=== PATIENT | male | born 2000 | race Caucasian/White ===

== ENCOUNTER 2024-06-07 08:00 | Outpatient (RCR) | payer OTHER, SELFPAY ==
--- NOTE | 2024-06-07 09:05 | BH.SGPN.GN ---
Behaviors/Verbalizations/Mental Status: [] Eye contact is good. Motor activity is appropriate. Appearance is casual. Speech is Appropriate. Mood is anxious/irritable. Affect is congruent. Thoughts are linear and logical. No evidence of psychosis. Reviewed daily check in sheet and pt reports 1/5 for suicidal thoughts and 0/5 for intent. Completed risk assessment prior to group. Client Response/Progress/Benefit: [] Pt declined to participate during check-in. Daily symptom tracker notes 4/5 for irritability and 3/5 for depression.Today was his first day in IOP level of care. Peers introduced themselves and shared feedback and advice for his first day/week which was beneficial. Limited progress noted. Limited benefit from group and pt presents as distracted and anxious. Will continue in IOP to prevent decompensation, stabilize mood, and increase healthy coping skills.? Narrative Note: []
--- NOTE | 2024-06-07 09:59 | BH.COMM ---
Communication Note Communication with Client Communication Note: Met with pt to complete initial paperwork and administer the CSSR-S screening and risk assessment. Pt is a mild risk as pt has thoughts of , but pt has no thoughts of actually killing himself. Pt reports he has googled if oxygen can be a method for suicide, but he shared ?googling was as far as it went.? Pt has no history of suicide attempts and he denies ever having any plans or intent to kill himself. Pt has history of self-harm by burning once 3-4 years ago. No access to weapons. Pt is future oriented. Pt reports ability to maintain safety today. Discussed case with Dr. Sharp and pt will be admitted to [facility] tx with a diagnosis of MDD, recurrent severe without psychosis F 33.2
--- NOTE | 2024-06-07 10:15 | BH.SGPN.GN ---
Behaviors/Verbalizations/Mental Status: []Client alert and oriented, casually dressed and groomed. Eye contact good. Motor activity appropriate. Speech within normal limits. Affect flat, mood depressed and anxious. Thoughts linear, logical, no signs of hallucinations or delusions. Client Response/Progress/Benefit: [] Pt was an active participant AEB contributing to discussion, taking notes, and engaging in group activity. Pt?s first day of IOP tx and he was somewhat withdrawn which is not uncommon. Connected with the topic of pitfalls and listened to group discussion on barriers that prevent from choosing a healthier path to mental wellness. Group worked together to identify examples of personal pitfalls. These examples included; shutting down, not asking for help, negative thinking patterns, and using substances. Pt benefited from group as Pt learned to better identify potential barriers to improving mental health symptoms. Pt will continue IOP tx to improve mood stability, promote use of healthy coping skills, and prevent decompensation. Narrative Note: []
--- NOTE | 2024-06-07 11:15 | BH.SGPN.GN ---
Behaviors/Verbalizations/Mental Status: []Client alert and oriented, casually dressed and groomed. Eye contact good. Motor activity appropriate. Speech within normal limits. Affect congruent, mood anxious and depressed. Thoughts linear, logical, no signs of hallucinations or delusions. Client Response/Progress/Benefit: [] Pt receptive of session, engaged throughout AEB Pt actively listening and contributing to discussion as well as taking notes.? Pt participated in the experiential activity and did well to communicate ideas with peers and manage emotions. Pt attentive as group processed how the emotions and perspective of the group impacted the activity. Group worked together to identify different coping skills to help manage pitfalls. Pt identified a pitfall they struggle with as no routine. Pt plans to work on their pitfall by taking small steps to begin establishing routine. Benefited from identifying personal pitfalls and strategies to overcome these pitfalls. Pt will continue IOP tx to prevent decompensation, improve daily functioning, and gain skills to manage depressive sx. Narrative Note: []
--- NOTE | 2024-06-07 11:53 | BH.PSA ---
Source of Information Presenting Problems/Circumstances Problems, Referral Source, Mental Status, Client: The patient is a 23-year-old single male with a history of depression, anxiety and probable autism spectrum disorder who was referred to the [facility] behavioral health IOP by his mother for worsening symptoms of depression and anxiety over the past year since moving back home from [place] where he had been living and working independently. Psychiatric Presentation Psych Issues & Need for Admission Psychiatric Issues:: Anxiety, Depression, Autism Spectrum Disorder Development & Family of Origin Childhood Significant Childhood Events: Pt reports his childhood was normal he did indicate has been estranged from his father since age 13 and it is unclear why this has occurred. Pt additionally reports he did well in school academically but states that he never did well socially. He states I do not get along with people. Pt has struggled with socialization since. Family Who currently lives in your home?: Pt is living with his mother and step-father. Describe family composition:: Pt has been estranged from his biological father since age 13. He is currently living with his mother and step-father and reports this is a good relationship. Pt has a half-brother 15 months older than he and reports they are close. Family History Family Hx of Psychiatric or AOD Problems: Mother is 48 and biological father he has been estranged from since age 13 and is not sure how old he is now. His biological father was bipolar and history of alcohol use disorder. No completed suicides in the family and no other substance issues. Ethnicity Culture Do you identify yourself with any particular cultural, ethnic background, or community?: No Sexuality Sexual Orientation: Heterosexual Spirituality Restoration Do you currently identify with any organized confucianist?: None Beliefs Is there a particular form of support from this community you can use for your recovery?: No Mental Status Memory Recent Memory: Fair Remote Memory: Fair Concentration Concentration: Fair Eye Contact Eye Contact: Good Speech Speech: Congruent Thought Process Thought Process: Logical and [place] Insight: Fair Judgment: Fair Behavior: Agitated Orientation Orientation: Time, Person, Place and Situation Appearance Appearance: Disheveled Mood Mood: Anxious, Depressed and Irritable Suicide Assessment Suicidal Ideation Have you ever felt like hurting yourself?: Yes Please explain:: hx of passive SI, denies plan or intent. Denies self-harm hx Were you using ETOH/drugs at the time?: Yes (pt vapes TCH throughout the day) Physician Notification Violent Behavior/Abuse History Homicidal Ideation Do you have any homicidal thoughts? If so, explain:: No Is there a known potential victim? If yes, who:: No Abuse Have you ever been abused?: No Life Events Are there any other significant life events?: Financial loss (Pt quit his job in February 2023 and has been struggling to find employment since) Safety Do you ever feel threatened in your home? If yes, describe:: No Adult Social History Age 17 to Present Describe your current support system:: Pt reports his parents, brother, and some online friends are primary supports. Reports difficulties connecting with others. Substance Use Substance Substance Use Type: Alcohol (1-2x per month), Marijuana (age 16 and he smokes and vapes once or twice daily a bowl or few vape pen hits), Tobacco (ages [age] off and on, none in a few months) and Caffeine Leisure/Social Activities Interests What do you enjoy or might be interested in learning about?: Online video games, [employer] card games, [employer], [employer] Education & Occupational Histo Education What is your level of education?: Some College Occupation List any current or past employment:: Previously worked in [employer] and [employer] Have you ever been in the ?: No Legal History Records Have you had any past legal charges?: No Do you have any current legal charges?: No Have you ever been incarcerated? If yes, describe:: No Court Orders Have you had any past court orders for psychiatric treatment?: No Do you have a present court order for psychiatric treatment?: No Problem Checklist Current Problem Areas Problem List: Depressed mood/sad, Anxiety, Anger/aggression and Substance use Discharge Planning Needs Anticipated Follow-Up Mental Health Center (Name/Phone Number):: None at present, will be connected prior to d/c Private Therapist/Psychiatrist:: None at present, will be connected prior to d/c Family and Caregiver Contacts:: Mom Release of Information Signed:: Yes Scarf Gluer's Assessment Client's Needs What are the client's feelings about the program?: Client is uncertain about the IOP program but is willing to give it a try as he does not want to continue to feel the way he does and does not want to disappoint his mother as she referred him to the program. What are the client's goals?: Improve motivation and follow-through with daily goals/responsibilities. Reduce depressive sx, and improve mood stability What are the client's strengths?: Intelligent, willing to to take feedback Diagnoses Diagnoses Diagnosis #1:: Major depressive disorder, recurrent, severe without psychosis Diagnosis #2:: Autism spectrum disorder Diagnosis #3:: Primary support and work issues Interpretive Summary Interpretive Summary Interpretive Summary: The patient is a 23-year-old single male with a history of depression, anxiety and probable autism spectrum disorder who was referred to the [facility] behavioral health IOP by his mother for worsening symptoms of depression and anxiety over the past few months. Symptoms have worsened in the past year since moving back in with his mother and step-father after living and working in [place] for 1 year. Patient moved back home due to worsening mental health symptoms. Due to current mental health symptoms he has not been able to work and has limited social support. He has some sadness and crying at times and also has anger daily which has been consistent for many years and some irritability with lashing out at others less than once a week. This is only verbal and he denies any violence. He endorses hopelessness, worthlessness, isolation, lack of motivation, anhedonia, naps during the day and then has a hard time sleeping at night, low energy, guilt, passive thoughts of . He denies plan for suicide, suicidal ideation, homicidal ideation, hallucinations, delusions or symptoms of yonas or hypomania ever. Repports using marijuana daily to cope with his sx. He says he is not a worrier by nature and denies panic attacks, OCD, eating disorder, trauma and PTSD. He denies any verbal, physical or sexual abuse ever and denies seizure or head trauma. He uses rare caffeine only and no energy drinks. He has a history of self-harm by burning himself but it was only 1 time at age 18 and never before or after. Treatment Plan Recommendations Recommendations Guidelines Recommendations:: The patient will start the IOP and behavioral health at [facility] as the structure, support, education and group therapy will hopefully prevent worsening of the patient's symptoms which could require hospitalization.
--- NOTE | 2024-06-09 10:25 | BH.MDN_ITS ---
Multi-Disciplinary Note Note 45-min Individual: Time Started:: 11:34 Date: 06/09/24 Purpose of session/treatment goals addressed:: Purpose of session was to address tx plan goal #1 obj #1 & 2 Eye Contact:: Good Motor Activity:: Appropriate Appearance:: Casual Speech:: Appropriate Mood:: Irritable Affect:: Congruent Thoughts:: Linear, Logical and No evidence of hallucinations/delusions noted Staff Interventions:: thought challenging, motivational interviewing and CBT techniques Client Response:: Pt receptive of session, willing to engage throughout though appearing resistant. Pt noted that he is feeling a little more irritable today and the past few days than usual. Pt noted that he has reduced naps however noted that he has not seen a change in mood yet as a result. Pt noted that he knows the skills, however, actively doesn?t utilize them. Stated that it?s not that he doesn?t want to make progress and use the skills, but he lacks the motivation and willingness to put in the effort. Notes that he will attempt to start working on a skill or goal and become easily distracted and ?give into the urge to give up?. Shared that in the past he has had ?a 6th month stretch of using skills? but is struggling with thoughts of ?what?s the point? given his return to depression following the period of skill application. Shared thoughts of ?this is pointless? and ?good things don?t last? which has deterred him from consistently applying opposite action or implementing positive self-talk or gratitude statements. Shared that he struggles to identify small positive moments throughout the day. Expressed reluctance but willingness to try starting to log small positive experiences or observations throughout the day to increase ability to reduce negative thinking. Risks/Concerns:: None noted. Pt denies SI, plan, or intent as of this date, 06/14/24 Progress Toward Goals/Plan:: Progress limited. Pt continues to report negative thoughts, lack of skill application follow-through, and low motivation. Pt reports difficulties with managing irritability and depression and often struggles with negative thoughts, hopelessness, and agitation. Pt reports dif ficulties in reducing isolation and believing that things can improve. Pt stated that he has however reduced daytime napping and is wanting to continue to work on self-care and increasing exercise. Pt recommended continued IOP tx to improve mood stability, reduce negative thinking, and prevent decompensation. Time Stopped:: 12:10
--- NOTE | 2024-06-09 10:45 | BH.NA_ITS ---
Physical Data Vital Signs Pulse Rate: 77 Blood Pressure: 143/73 Height/Weight Height: 1.77 m Weight:: 99.79 kg Weight in Pounds: 220.0 lbs Nutritional History Appetite Nutritional Instructions: Describe your appetite:: Good Additional nutritional information:: Client denies recent change in appetite or weight. Functional Assessment Sleep Pattern Describe any problems with sleeping: Client states he sleeps 6-8 hours per day. Sensory/Communication Assess Communication Problems Do you have difficulty understanding what people are saying?: No Medical Problems/History Pain Assessment Do you have acute or chronic pain?: No Surgical History Surgical History Have you had any surgeries? If so, list type and date:: No Substance Abuse Substance Abuse Please describe substance abuse in the last 30 days:: Client reports rarely drinking alcohol. Client states he used to vape nicotine but does not now. Clien t reports daily marijuana use. Client denies daily caffeine use. Mental Status Summary Mental Status Significant Findings/Observations on Appearance and Mood:: Client is alert and oriented x 4. Client is cooperative with assessment. Client makes good eye contact. Client's voice has normal rate and volume. Client has appropriate affect. Client makes logical associations and has normal processing. Client denies delusions/hallucinations. Client reports passive SI 1-2 times per week, but denies thinking of plan/methods and denies intent. Client denies SI today. Suicide Assessment Suicidal Ideation Are you currently or have you been suicidal in the past?: Yes Suicidal Intentional Rating Scale (SIRS): Suicidal thoughts (past) (states he has passive SI 1-2 times per week (wish I would ) but denies any plan/intent) Physician Notification Past Psychiatric History MH Treatment Hx Past Psychiatric Medications:: Prozac, Wellbutrin Age of first mental health symptoms: Client states he first took Prozac for some time around age 20-20, but does state he had depression symptoms before that. Describe (age, circumstance, etc) any past hospitalizations: None. Current providers for mental health treatment (counselor, psychiatrist, senior case manager, etc.): None currently. Fall Risk Assessment Age Age: Less than 60 Mental Status Mental Status: Willing & able to ask for assistance when needed Physical Status Physical Status: No problems Impairments Impairments: None Elimination Elimination: Continent AND independent Gait or Balance Gait or Balance: Walks independently Hx of Falls History of falls in the past 6 months: No known history Medications/Substances Medications/substances used within the past 24 hours or ordered to administer: None of the medications/substances list above Total Score Total Points:: 0 RN Summary of Impressions Impressions Recommendations Impressions: Psychiatric Issues: 1. Major depressive disorder, recurrent, severe without psychosis 2. Autism spectrum disorder 3. Primary support and work issues Level of Care How do the client's current symptoms and functional deficits support need for this level of care?: Client was referred to IOP by his mother for decompensation of mental health. Client states his biggest stressor is having a lack of a goal in life. Client states he does not have motivation in life and has no direction. Client states it's always kind of been that way with me but states struggling with his lack of motivation and direction more in the last 6 months. Client reports anger at times. Client does report to passive thoughts of 1-2 times per week but denies any plan or intent. IOP will promote gains and prevent further decompensation while providing social support and skills training.
[2024-06-09 11:05] VITALS: BP 143/73; PULSE 77
--- NOTE | 2024-06-09 11:15 | BH.SGPN.GN ---
Behaviors/Verbalizations/Mental Status: []Client alert and oriented, casually dressed and groomed. Eye contact fair. Motor activity appropriate. Speech within normal limits. Affect constricted, mood dysthymic. Thoughts linear, logical, no signs of hallucinations or delusions. Client Response/Progress/Benefit: []Pt was engaged throughout AEB contributing to group discussion and activity. Group processed how they each responded to the intentionally difficult task they were asked to completed and described the physical and emotional anger cues experienced throughout, as well as strategies used for managing these frustrations. Pt contributed as group brainstormed healthy coping skills for better managing anger which included: music, walking/exercise, taking a break, healthy venting, avoiding unnecessary stressors, reflection, and journaling. Pt cooperative with working in small groups to identify what strategy wants to work on to help interrupt personal anger cycle. Pt to continue IOP to improve daily functioning, increase use of healthy coping skills, and prevent decompensation.
--- NOTE | 2024-06-09 11:58 | BH.PSY.EVA_ITS ---
Psychiatric Evaluation Initial Evaluation Initial Evaluation: History of Present Illness: [] The patient is a 23-year-old single male with a history of depression, anxiety and probable autism spectrum disorder who was referred to the [facility] behavioral health IOP by his mother for worsening symptoms of depression and anxiety over the past few months. The patient has struggled with his mental health on and off all my life. His symptoms have worsened in the past year and he thinks possibly they started after he switched jobs. 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 Patient was living alone but last year he moved back in with his mother and stepdad due to worsening mental health symptoms. He gets along well with both of them. Due to symptoms he has not been able to work and has limited social support. He has some sadness and crying at times and also has anger daily which has been consistent for many years and some irritability with lashing out at others less than once a week. This is only verbal and he denies any violence. For primary support he has his mother. He uses marijuana daily. He endorses hopelessness, worthl essness, isolation, lack of motivation, anhedonia. Appetite and weight are stable. He naps during the day and then has a hard time sleeping at night but he is getting over 8 hours of sleep a day total. Low energy but concentration is okay. He endorses guilt, passive thoughts of . He denies plan for suicide, suicidal ideation, homicidal ideation, hallucinations, delusions or symptoms of yonas or hypomania ever. He says he is not a worrier by nature and denies panic attacks, OCD, eating disorder, trauma and PTSD. He denies any verbal, physical or sexual abuse ever and denies seizure or head trauma. He uses rare caffeine only and no energy drinks. He has a history of self-harm by burning himself but it was only 1 time at age 18 and never before or after. Current Psychiatric Medications: [] No psych meds. Past Psychiatric History: [] No psych admits ever. No suicide attempts ever. He does not have an outpatient psych provider. He was first depressed in high school and took his first medications at age 18 or 19 along with his first counseling. He last took any psych meds 18 months ago. Past medications include Prozac which worked for a long time and Wellbutrin which she felt did not help him and he did not like it. Substance Use History: [] He has smoked marijuana since age 16 and he smokes and vapes once or twice daily a bowl or few vape pen hits. He uses alcohol occasionally like less than 1 or 2 times in the past month or 2. No other drug use. He used to use nicotine from age [age] he vapes nicotine on and off but he quit nicotine use a few months ago. Allergies: [] No known allergies. Medications: [] No medications or supplements. Past Medical History: [] No medical illnesses and no surgeries ever. Normal sexual function and identifies as heterosexual. Family Psychiatric History: [] Mother is 48 and biological father he has been estranged from since age 13 and is not sure how old he is now. His biological father was bipolar and history of alcohol use disorder. No completed suicides in the family and no other substance issues. Personal/Social History: [] Patient was born and raised in [place] and describes his childhood as normal. His parents were loving and he has one half brother [id number] who is fairly close to his they were mostly raised together. He denies any verbal, physical or sexual abuse. He did well in school academically but states that he never did well socially. He states I do not get along with people. He graduated high school and has some college but quit because he was not motivated. He has been estranged from his father since age 13 and it is unclear why this has occurred. 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 No serious girlfriends lately but he had 1 serious girlfriend from age [age] for a little less than a year. Legal History: [] No arrests. No DUIs. Has tow car driver's license. Review of Systems: [] Review of systems is negative except as noted in the present illness. Vital Signs: [] Vital signs are reviewed in the nurses notes and updated and the patient is deemed medically able to participate in the IOP. Mental Status Examination: [] The patient is a 23-year-old male who appears normal for stated age and has a carlson. He is ambulatory with a normal gait and is casually dressed and groomed with good hygiene. He has no psychomotor agitation or retardation. He is cooperative during the interview. Eye contact is good and speech is normal rate and rhythm and fluent with no pres sure. Mood is depressed. Affect is mildly constricted. Thought process is goal-directed and organized. Thought content: There is evidence of passive thoughts of but there is no evidence of plan for suicide, suicidal ideation, homicidal ideation, hallucinations, delusions or symptoms of yonas ever. Reality testing is intact. Intelligence is average. Judgment is intact. Insight Limited. Laboratory: He has never had any blood work that he recalls. Diagnoses: [] 1. Major depressive disorder, recurrent, severe without psychosis 2. Autism spectrum disorder 3. Primary support and work issues Plan: [] The patient will start the [facility] and behavioral health at [facility] as the structure, support, education and group therapy will hopefully prevent worsening of the patient's symptoms which could require hospitalization. He felt safe during the interview and if it anytime he does not feel safe he agrees to let us know or go to the emergency room. The risk, options, possible complications and side effects of the medications options were discussed with the patient and he understands accepts these. The patient agrees to go back on Prozac since he did well on it for many years and he does not take any other medication. Prescription is sent in for Prozac 10 mg p.o. daily. He agrees to get a TSH and vitamin D laboratory done. He agrees to keep regular sleep-wake hours and to stop napping so he sleeps better at night. He will follow-up with with his outpatient providers and I will see the patient in follow-up in 2 weeks. He will try to decrease his marijuana use.
--- NOTE | 2024-06-09 12:08 | BH.DR.ITP ---
Initial Treatment Plan Patient Information Visit Information: ADMISSION DATE: EXPECTED LOS: 4-6 weeks Problems/Symptoms Problem #1:: Depression Symptom:: Sadness, hopelessness, worthlessness, anhedonia, lack of motivation, low energy, guilt, passive thoughts of
--- NOTE | 2024-06-09 15:34 | BH.MDN_ITS ---
Multi-Disciplinary Note Note 45-min Individual: Time Started:: 09:20 Date: 06/09/24 Purpose of session/treatment goals addressed:: To gather information on pt's treatment goals, presenting problems, history, and past treatment. Another goal was to build rapport. Eye Contact:: Good Motor Activity:: Appropriate Appearance:: Casual Speech:: Pressured Mood:: Anxious and Depressed Affect:: Congruent Thoughts:: Linear, Logical and No evidence of hallucinations/delusions noted Staff Interventions:: motivational interviewing, rapport building, strengths perspective, treatment planning and other (emotion validation) Client Response:: Pt responded well to session, open to meeting with therapist. Pt reports he has been struggling with mental health for many years as pt recalls depressive sx since early high school. Pt shared he has always felt ?different? from other people and has struggled to connect with others. Reports limited supports and no friendships as a result. Shared that he has been living with his mother and step-father since February 2023 when he moved back home after living in [place] for a while. Reports that he had been doing financially well in [place] but was lonely and began struggling with increased depression and social anxiety, resulting in returning home. Pt has had difficulties maintaining a job since moving back home and feels this is contributing significantly to his mental health decline. Described sx of feeling like a burden, guilt, hopelessness, worthlessness, purposelessness, low motivation, loss of enjoyment, and apathy. Noted that he does not know what to do with himself during the day and ends up playing video games, napping, or watching t.v. which leads to feelings of guilt and negative self-talk of ?I should be doing something. What?s the point?. Receptive of psychoeducation on depressive maintenance cycles. Wants to work on finding ?direction in life?, feeling more connected, and improving his sense of motivation. Receptive of working on reducing napping and connected to concept of behavioral activation in breaking depressive maintenance cycle. Shared he would like to work on being more active and finding enjoyment in hobbies as well. Insight that daily marijuana use may be impacting mood and motivation levels but feels he does not know how else to manage mental health sx. Denies other substance use. Pt receptive to emotional support and psychoeducation provided by therapist throughout session. Risks/Concerns:: Pt denies have any SI, plan or intent as of this date, 06/09/24 Progress Toward Goals/Plan:: Pt's second day of IOP tx. Pt shared he has never done group therapy in the past, but he is keeping an open mind. Pt has had counseling in the past but is not currently connected with providers. Pt wants to focus on reducing depression and finding a ?sense of direction?. Pt wants to isolate less, find purpose in daily activities, and be able to regulate his emotions more effectively. Pt will continue IOP tx to prevent decompensation, improve daily functioning, and gain healthy coping skills. Time Stopped:: 10:00
--- NOTE | 2024-06-11 09:05 | BH.SGPN.GN ---
Behaviors/Verbalizations/Mental Status: [] Eye contact is good. Motor activity is appropriate. Appearance is casual. Speech is Appropriate. Mood is euthymic. Affect is full. Thoughts are linear and logical. No evidence of psychosis. Reviewed daily check in sheet and pt reports 1/5 for self-harm urges and suicidal thoughts however 0/5 for intent. Client Response/Progress/Benefit: [] Pt participated at times during the group discussions. Attentive. Daily symptom tracker notes 3/5 for agitation and 2/5 for depression. Pt states that a significant mental health win is that he made it to IOP 3 days this week. Also shared that he followed through with an stressful and anxiety-producing event this week rather than avoid it. Emotion for today is neutral. Reports decrease sleep recently which impacts his mental health and overall functioning. Benefited from group support, encouragement, and feedback. Will continue in IOP to prevent decompensation, stabilize mood, increase healthy coping, and improve functioning. Narrative Note: []
--- NOTE | 2024-06-11 10:10 | BH.SGPN.GN ---
Behaviors/Verbalizations/Mental Status: [] Eye contact is fair. Motor activity is appropriate. Appearance is casual. Speech is Appropriate. Mood is dysthymic. Affect is constricted. Thoughts are linear and logical. No evidence of psychosis. Client Response/Progress/Benefit: [] Pt receptive of session, actively engaged throughout AEB taking notes, providing input, and contributing in small group discussion. Appeared to connect with group topic of automatic thoughts and cognitive distortions, as well as the impact of thought patterns on mental health, coping behaviors, and relationships. This particular group is very heavy on psychoeducation and pt appeared to connect with distortions and how they can impact functioning. Identified most common distortions he uses are all or nothing thinking and disqualifying the positives. Pt appeared to benefit from gaining insight on distorted thinking patterns and how this impacts overall mental health. Will continue IOP to improve daily functioning, increase consistent use of healthy coping skills, and prevent decompensation.
--- NOTE | 2024-06-11 11:15 | BH.SGPN.GN ---
Behaviors/Verbalizations/Mental Status: []Pt alert and oriented, casually dressed and groomed. Eye contact fair. Motor activity appropriate. Speech within normal limits. Affect constricted, mood depressed and agitated. Thoughts linear, logical, no signs of hallucinations or delusions Client Response/Progress/Benefit: [] Pt was an active participant during group discussion. Pt was placed in a smaller group and participated in combatting example distortions with peers. Pt was engaged in the smaller group, participated in group interactions to brainstorm answers, and appeared to be comprehending cognitive distortions. Attentive and appeared to connect with psychoeducation about different strategies to reframe/challenge distortions. Identified wanting to use looking at the evidence to better challenge personal distorted thoughts. Benefited from gaining further insight and awareness of cognitive distortions as well as practicing ways to reframe and challenge thoughts. Will continue in IOP to improve daily functioning, increase healthy coping, and prevent decompensation. Narrative Note: []
--- NOTE | 2024-06-11 11:52 | BH.MTP ---
Master Treatment Plan Patient Information Program Physician:: Dr. Malaika Berrios Primary Therapist:: HAILEE Sparks Psychiatric Diagnoses Psychiatric Diagnoses:: 1. Major depressive disorder, recurrent, severe without psychosis 2. Autism spectrum disorder 3. Primary support and work issues Diagnosis Code(s):: F33.2 Estimated LOS Estimated LOS (in weeks):: 6 Problem/Goal #1 Problem/Goal #1 Stated Goal:: Client will decrease depressive symptoms, low motivation, and hopelessness due to Major Depressive Disorder through Intensive Outpatient Program. Description of Barriers: Self-reports low motivation, treatment resistance, and mainly attending IOP treatment because his mother is encouraging him to do so. Given pt self-reports of difficulties in following-through with things this may be a barrier to tx progress. Functional Impact: The patient is a 23-year-old single male with a history of depression, anxiety and probable autism spectrum disorder who was referred to the [facility] behavioral health IOP by his mother for worsening symptoms of depression and anxiety over the past few months. Symptoms have worsened in the past year since moving back in with his mother and step-father after living and working in [place] for 1 year. Patient moved back home due to worsening mental health symptoms. Due to current mental health symptoms he has not been able to work and has limited social support. He has some sadness and crying at times and also has anger daily which has been consistent for many years and some irritability with lashing out at others less than once a week. This is only verbal and he denies any violence. He endorses hopelessness, worthlessness, isolation, lack of motivation, anhedonia, naps during the day and then has a hard time sleeping at night, low energy, guilt, passive thoughts of . He denies plan for suicide, suicidal ideation, homicidal ideation, hallucinations, delusions or symptoms of yonas or hypomania ever. Repports using marijuana daily to cope with his sx. He says he is not a worrier by nature and denies panic attacks, OCD, eating disorder, trauma and PTSD. He denies any verbal, physical or sexual abuse ever and denies seizure or head trauma. He uses rare caffeine only and no energy drinks. He has a history of self-harm by burning himself but it was only 1 time at age 18 and never before or after. Goal Relevant Strengths/Supports: Intelligent, willing to receive feedback Objectives Objective #1: Stated Objective: Client will learn and utilize 2-3 healthy coping strategies to manage depressive symptoms and see a reduction in DSM-5 sx for depression. Interventions: Therapist will utilize CBT techniques to assist client with understanding the connection between thoughts, feelings and behaviors. Education will be provided on behavioral activation. Therapist will assist client in learning internal coping strategies to manage depressive symptoms, along with helping client identify triggers. Discharge Criteria: Client will have achieved this goal when can verbalize and has practiced at least 2 healthy coping strategies that successfully manage depressive symptoms and DSM-5 scores for depression indicate a reduction in sx as well. Target Date: 07/23/24 Review Date: 06/30/24 Objective #2: Stated Objective: Client will identify and replace 2-3 negative thinking patterns that reinforce depressive symptoms. Interventions: Therapist will assist client in developing an awareness of the cognitive messages that reinforce depressive thinking. Therapist will also assist client in challenging negative thinking patterns. Discharge Criteria: Client will have achieved this goal when can identify at least 2 negative thinking patterns, replace negative thinking with more positive, affirmative messages and state no longer having thoughts of . Target Date: 07/23/24 Review Date: 06/30/24
--- NOTE | 2024-06-14 09:05 | BH.SGPN.GN ---
Behaviors/Verbalizations/Mental Status: [] Eye contact is good. Motor activity is appropriate. Appearance is casual. Speech is Appropriate. Mood is depressed. Affect is congruent. Thoughts are linear and logical. No evidence of psychosis. Reviewed daily check in sheet and pt reports 1/5 for SI and 0/5 for intent. Baseline. Client Response/Progress/Benefit: [] Pt participated at times during the group discussions. Attentive. Daily symptom tracker notes 3/5 for depression, anxiety, and irritability. Also reports 1/5 for self-harm urges. Very brief and superficial check-in. Reports lifestyle changes in the past week which include eating healthier which he believes will benefit his mental health. He also reports that maintaining the routine on attending IOP has been beneficial. Primary stressor is related to sleep which he notes has been impacting mental health and overall functioning. Limited progress noted. Benefited from group support,encouragement,and feedback. Will continue in IOP to prevent decompensation, increase healthy coping, and improve functioning. Narrative Note: []
--- NOTE | 2024-06-14 10:10 | BH.SGPN.GN ---
Behaviors/Verbalizations/Mental Status: []Client alert and oriented, casually dressed and groomed. Eye contact good. Motor activity appropriate. Speech within normal limits. Affect congruent, mood agitated and depressed. Thoughts linear, logical, no signs of hallucinations or delusions. Client Response/Progress/Benefit: [] Pt was an attentive and active participant, AEB taking notes and providing input in group discussion. Attentive during psychoeducation. Pt engaged during interactive discussion in which the group defined self-care and discussed its benefits. Group discussed barriers to engaging in self-care. Group members together came up with guilt, time, ?people pleasing?, not knowing what to do, and perception that its unproductive as barriers to engage in self-care. Pt identified personal barrier as ?it takes effort and energy? and ?not wanting to?. Pt participated in small groups where they worked to identify and challenged common self-care ?myths?. Benefited from increased awareness of self-care, its benefits, and the consequences of not utilizing self-care strategies. Will continue IOP tx to improve mood stability, promote use of healthy coping skills, and prevent decompensation. Narrative Note: []
--- NOTE | 2024-06-16 09:00 | BH.SGPN.GN ---
Behaviors/Verbalizations/Mental Status: [] Client alert and oriented, casual appearance. Eye contact fair. Motor activity appropriate. Speech within normal limits. Affect constricted, mood depressed. Thoughts linear, logical, no signs of hallucinations or delusions. Reviewed client's symptom tracker, no risk for suicidal ideation, plan, or intent. Client Response/Progress/Benefit: []Client appeared to attentive AEB listening attentively to others. Client chose to not check-in this morning how wins, stressors, or emotion. Appeared to benefit from getting out of the house and being around peers. Will continue IOP tx to increase consistent use of healthy coping skills, challenge distortions, and prevent decompensation.
--- NOTE | 2024-06-16 10:15 | BH.SGPN.GN ---
Behaviors/Verbalizations/Mental Status: []Pt alert and oriented, casually dressed and groomed. Eye contact good. Motor activity appropriate. Speech within normal limits. Affect flat, mood depressed. Thoughts linear, logical, no signs of hallucinations or delusions. Client Response/Progress/Benefit: [] Pt was attentive during psychoeducation and participated in group activity. Group discussed what contributes to a person?s perspective and how perspective can positively or negatively impact mental health treatment. Pt reflected on their perspective today and how it is impacting them. Pt shared their perspective is ?somewhere in the middle? but pt noted he tends to default to more negative and this reduces his productivity. Pt appeared to benefit from increasing awareness of different perspectives and how they can affect mental health. Pt will continue IOP tx to prevent decompensation, improve daily functioning, and reduce negative thinking patterns. Narrative Note: []
--- NOTE | 2024-06-16 11:15 | BH.SGPN.GN ---
Behaviors/Verbalizations/Mental Status: []Pt alert and oriented, casually dressed and groomed. Eye contact good. Motor activity appropriate. Speech within normal limits. Affect congruent, mood depressed. Thoughts linear, logical, no signs of hallucinations or delusions. Client Response/Progress/Benefit: []Pt was attentive and contributed to group discussion. Pt worked with group to identify strategies that can help with challenging negative perspective. Pt stated he can remind self of the evidence against his current perspective as a way to challenge negative perspective. Pt completed strengths exploration worksheet, identifying personal strengths. Pt able to acknowledge how these strengths are helping pt and can continue to help pt in mental health journey. Pt identified wanting to work on leaning on strength of humor. Benefited from identifying personal strengths and strategies for enhancing use of identified strengths. Pt will continue IOP tx to continue improve functioning and mood stability, challenge perspective, and prevent decompensation. Narrative Note: []
== END 2024-06-18 23:59 ==
LOC: BHIOP 08:00
PROVIDERS: Referring Provider Psychiatry & Neurology Psychiatry; Visit Provider Psychiatry & Neurology Psychiatry
DX: F33.2 Major depressive disorder, recurrent severe without psychotic features (principal); F84.0 Autistic disorder
CPT/HCPCS: S9480; 90834; 90853

== ENCOUNTER → 2024-06-09 | Outpatient (CLI) | payer OTHER, SELFPAY ==
[2024-06-09 13:18] LABS: Vitamin D,25 Hydroxy 9.2 ng/mL
== END | disposition home or self-care (01) ==
LOC: LAB 12:18
PROVIDERS: Referring Provider Psychiatry & Neurology Psychiatry; Visit Provider Psychiatry & Neurology Psychiatry
DX: E55.9 Vitamin D deficiency, unspecified (principal)
CPT/HCPCS: 36415; 82306; 84443

== ENCOUNTER 2024-06-21 07:17 | Outpatient (RCR) | payer OTHER, SELFPAY ==
[2024-06-19 02:41] VITALS: BP 143/73; PULSE 77
--- NOTE | 2024-06-21 09:00 | BH.SGPN.GN ---
Behaviors/Verbalizations/Mental Status: [] Client alert and oriented, casual appearance. Eye contact good. Motor activity appropriate. Speech within normal limits. Affect congruent, mood irritable. Thoughts linear, logical, no signs of hallucinations or delusions. Reviewed client's symptom tracker, client indicated a 1/5, with 5 being severe, for suicidal thoughts and a 1/5 for suicidal intent. Client's IOP therapist checked in with him and he stated this is his baseline scores and does not feel imminent risk to himself or others. Reported able to maintain safety. Client Response/Progress/Benefit: [] Client responded well to session AEB listening to others and sharing thoughts/feelings. Per daily symptom tracker client reported a 3/5, with 5 being severe, for depressed mood, 2/5 for anxiety, and 3/5 for agitation. Client reported mental positive as making it to IOP today despite not getting very good sleep last night. Client reported mental health positive as meeting up with some friends over the weekend to play cards which is something he enjoys doing. Client stated current stressor is sleep. Client recognizes he needs to break the cycle of taking naps because he is tired which then resulted in him not being able to go to bed at night. Client stated he knows he needs to stop the cycle but it is easier said than done. Client shared feeling indifferent. Client stated he knows there is things he can do to help himself but does not really do those things. Client appeared to benefit from support from peers. Will continue IOP tx to improve daily functioning, increase consistent use of healthy coping skills, and prevent decompensation. Narrative Note: []
--- NOTE | 2024-06-21 10:10 | BH.SGPN.GN ---
Behaviors/Verbalizations/Mental Status: [] Eye contact is good. Motor activity is appropriate. Appearance is casual. Speech is Appropriate. Mood is depressed/irritable. Affect is congruent. Thoughts are linear and logical. No evidence of psychosis. Client Response/Progress/Benefit: [] Pt participated when prompted. Attentive during psychoeducation. Along with peers, pt was able to identify barriers to taking action in their life. Identified several symptoms and stressors that pt feels are holding them back from progress such as procrastination and forgetting the benefits. Stated these things have kept pt from accepting or changing patterns. Benefited from increased self-awareness of obstacles. Will continue IOP tx to prevent decompensation, increase healthy coping, and improve functioning. Narrative Note: []
--- NOTE | 2024-06-21 11:15 | BH.SGPN.GN ---
Behaviors/Verbalizations/Mental Status: []Pt alert and oriented, casually dressed and groomed. Eye contact good. Motor activity appropriate. Speech within normal limits. Affect congruent, mood anxious and dysthymic. Thoughts linear, logical, no signs of hallucinations or delusions. Client Response/Progress/Benefit: [] Pt responded well to session, taking notes and participating in worksheet discussion. Pt connected with the discussion on motion vs action steps, and this helped pt learn how to set goals differently. Pt set a goal to work on going for regular walks. Pt identified motion steps including identifying what would incentivize him, starting with a small goal of 5 minutes. Pt stated what will help take action is communicate with support his intention and habit stacking with a shower. Appeared to benefit from identifying a small goal to benefit mental health. Pt is to continue IOP tx to promote use of healthy coping skills, challenge distortions, and prevent decompensation. Narrative Note: []
--- NOTE | 2024-06-22 10:10 | BH.SGPN.GN ---
Behaviors/Verbalizations/Mental Status: []Eye contact is good. Motor activity is appropriate. Appearance is casual. Speech is Appropriate. Mood is dysthymic. Affect is congruent. Thoughts are linear and logical. No evidence of psychosis. Client Response/Progress/Benefit: [] Pt was engaged and participating throughout, providing input and taking notes. Participated in an interactive discussion on defining anxiety and identifying cognitive and physiological symptoms of anxiety. The group discussed the role of anxiety on isolation, avoidance, and how this emotion impacts their ability to start and complete activities/goals. Pt identified their physical/physiological signs of anxiety which includes: butterflies in stomach, heart racing, and frog in throat. Benefited from increased awareness and insight on anxiety and its impact. Will continue in IOP to decrease isolation, increase healthy coping skills, and prevent decompensation. Narrative Note: []
--- NOTE | 2024-06-22 11:08 | BH.SGPN.GN ---
Behaviors/Verbalizations/Mental Status: []Pt alert and oriented, disheveled appearance. Eye contact good. Motor activity appropriate. Speech within normal limits. Affect congruent, mood depressed. Thoughts linear, logical, no signs of hallucinations or delusions. Client Response/Progress/Benefit: []Pt was an active participant AEB pt providing input and listening attentively to peers. Attentive during psychoeducation on mindfulness coping skills and their impact on reducing anxiety and improving overall mental health wellness. Group was able to identify self-soothing and mind-based coping skills which included: 5-senses, meditation, deep breathing, categories, thought challenging, categories, and progressive muscle relaxation. Pt also participated with peers in practicing mindfulness skills in session including deep breathing and PMR. Pt would like to work on 5-senses to manage anxiety. Appeared to benefit from increasing repertoire of anxiety reduction skills. Pt will continue in IOP tx to reduce isolation, improve daily functioning, and increase internal motivation. Narrative Note: []
--- NOTE | 2024-06-22 11:20 | BH.MDN ---
Multi-Disciplinary Note Note 30-min Individual: Time Started:: 09:40 Date: 06/22/24 Purpose of session/treatment goals addressed:: Purpose of session was to review homework form last session, as well as identify barriers maintaining depression and strategies for reducing those behaviors. Eye Contact:: Good Motor Activity:: Appropriate Appearance:: Casual Speech:: Appropriate Mood:: Depressed Affect:: Congruent Thoughts:: Linear, Logical and No evidence of hallucinations/delusions noted Staff Interventions:: thought challenging, psychoeducation on: (habit development and breaking unhealthy habits), CBT techniques, strengths perspective and goal setting Client Response:: Pt responded well to session, open to meeting with therapist and receptive of discussion throughout. Pt reports overall his mood and energy levels remain the same; however, he does indicate increased effort in application of skills learned. Discussed being more intentional about his personal hygiene routine and is doing better to consistently brush his teeth and eat breakfast in the mornings. Described trying to reduce daily naps but continues to struggle in this area. Insight that an inconsistent sleep/wake schedule and daily marijuana use may be contributing to daytime fatigue, reinforcing low motivation and depressive sx. Pt stated that he had intended to go for a walk following IOP tx yesterday but found himself napping and then feeling guilty for doing so instead. Shared that he would like to reduce the overall frequency of daily marijuana use; however, has struggled with doing so in the past due to the habitual nature of his use. Able to identify visual, time, and behavioral cues to use. Reports often vaping prior to meals and was able to connect with discussion on changing the time, location, and behaviors surrounding meal times to eliminate current cues to use. Pt identified the benefit of habit staking walking with one of his daily meals to provide healthy distraction and replace previous mealtime habits. Identified goal to begin drinking a meal replacement shake while walking at lunchtime to reduce likelihood of smoking. Plans to leave vape pen at home during this time as well to reduce likelihood of use. Went on to discuss trying to implement goal of identifying small daily positive experiences' however does find that he almost immediately disqualifies these. Reviewed strategies for continued thought challenging and mindfulness gratitude approaches to challenging this distortion. Risks/Concerns:: None noted. Pt denies SI, plan, or intent as of this date 06/22/24 Progress Toward Goals/Plan:: Progress noted. Pt reports improved ability and willingness to begin trying to challenge his perspective and identify more daily positive, practice additional mindfulness, as well as increase self-care routine implementation. Pt does continue to indicate difficulties with active skill application and follow-through, specifically with goals to get back into walking/exercising regularly. Pt reports his mood continues to be depressed and motivation low, but is finding his ability to connect with topics discussed in group to be improving. This is further evidenced by improved engagement in group sessions over the last week. Pt recommended continued IOP tx to improve mood stability, promote application of behavior activation skills, and prevent decompensation. Time Stopped:: 10:05
--- NOTE | 2024-06-25 09:00 | BH.SGPN.GN ---
Behaviors/Verbalizations/Mental Status: [] Eye contact is good. Motor activity is appropriate. Appearance is disheveled. Speech is Appropriate. Mood is dysthymic. Affect is congruent. Thoughts are linear and logical. No evidence of psychosis. Reviewed daily check in sheet and pt reports 1/5 for suicidal ideations and 0/5 for intent. This is baseline. Client Response/Progress/Benefit: [] Pt participated when prompted. Attentive. Daily symptom tracker notes 3/5 for anxiety and 2/5 for depression/agitation. Also reports 1/5 for self-harm urges. Despite these scores pt report overall mood and functioning are better. My sleep is a rollercoaster. Pt shared recent strategies to help improve sleep with some progress noted however this continues to be a struggle. Pt has difficulty not napping throughout the day which impacts his sleep schedule as well as his mental health and productivity during the day. He woke up late this AM however I didn't skip IOP. Utilizes opposite actions and distress tolerance skills to follow through with getting here this AM. He is working to change unhealthy habits and incorporating healthier habits to beneficial his overall functioning. Some progress noted. Benefited from group support, encouragement, and feedback. Will continue in IOP to prevent decompensation, increase healthy coping,and improve functioning. Narrative Note: []
--- NOTE | 2024-06-25 10:15 | BH.SGPN.GN ---
Behaviors/Verbalizations/Mental Status: [] Eye contact is good. Motor activity is appropriate. Appearance is casual. Speech is Appropriate. Mood is anxious. Affect is congruent. Thoughts are linear and logical. No evidence of psychosis Client Response/Progress/Benefit: [] Pt receptive to session AEB listening attentively to others and taking notes. Pt attentive throughout psychoeducation on the cognitive triangle and maintenance cycles. Pt attentive and engaged during small group discussion reviewing the impact of daily activities and behaviors in either reinforcing unhealthy maintenance cycles and depression or assisting in reducing symptoms (?down? vs ?up? activities). Pt identified common up activities (exercise, going outside, and eating healthy) and down activities (napping, binge watching, doom scrolling). Appeared to benefit from increased awareness of current behaviors and impact these have on mental health. Will continue IOP to prevent decompensation, increase healthy coping, and improve functioning. Narrative Note: []
--- NOTE | 2024-06-25 11:10 | BH.SGPN.GN ---
Behaviors/Verbalizations/Mental Status: []Pt alert and oriented, disheveled appearance. Eye contact good. Motor activity appropriate. Speech within normal limits. Affect congruent, mood depressed. Thoughts linear, logical, no signs of hallucinations or delusions. Client Response/Progress/Benefit: [] Pt responded well to session, attentive and engaged in group discussions and activity. Actively engaged in continued discussion about up activities and down activities. Active participant as group discussed values and the benefits that knowing one's values can have on one's mental health. Pt completed worksheet on values and set a goal to be more physically active again by walking on the treadmill or outside once a week. Benefited from increased awareness of their personal values and how incorporating their values into behavioral activation goals can positively impact mental health. Will continue in IOP to reduce negative thinking patterns, improve daily functioning, and increase internal motivation. Narrative Note: []
--- NOTE | 2024-06-28 09:00 | BH.SGPN.GN ---
Behaviors/Verbalizations/Mental Status: [] Eye contact is good. Motor activity is appropriate. Appearance is casual. Speech is Appropriate. Mood is dysthymic. Affect is congruent. Thoughts are linear and logical. No evidence of psychosis. Reviewed daily check in sheet and pt reports 1/5 for suicidal thoughts and 0/5 for intent. This is baseline. Client Response/Progress/Benefit: [] Pt was an active participant in group discussion. Attentive. Daily symptom tracker notes 2.5 for anxiety, depression, and irritability. Also reports 1/5 for self-harm urges. Very brief and superficial check-in which is baseline for pt. Reports utilizing opposite-action and behavioral activation on consistent basis to improve his functioning. Seeing benefits to his mental health as well, however continues to report low motivation. He has begun job searching which is a significant step for patient. Progress noted, however mental health continues to impact daily functioning. Benefited from group support, encouragement, and feedback. Will continue in IOP to prevent decompensation, increase healthy coping,and improve functioning. Narrative Note: []
--- NOTE | 2024-06-28 10:10 | BH.SGPN.GN ---
Behaviors/Verbalizations/Mental Status: []Eye contact is good. Alert and oriented. Motor activity is appropriate. Appearance is casual. grooming is appropriate. Speech is Appropriate. Mood is dysthymic. Affect is congruent. Thoughts are linear and logical. No evidence of psychosis or hallucinations. Client Response/Progress/Benefit: [] Pt was an active participate AEB listening attentively to others and contributing during group discussions, participating in activity, and taking notes throughout. Attentive and provided input as the group identified ways we can hurt others or sabotage self by not regulating our emotions. Participated with peers to identify ways emotions impact communication. Provided an example of lashing out verbally or stonewalling when anger is unmanaged. Participated during group activity. Pt benefited from session by gaining an increased understanding on the importance of managing emotions to improve daily functioning. Will continue IOP tx to promote use of healthy coping skills, reduce negative thinking patterns, and improve mood stability. ? Narrative Note: []
--- NOTE | 2024-06-28 11:05 | BH.SGPN.GN ---
Behaviors/Verbalizations/Mental Status: []Pt alert and oriented, casually dressed and appropriately groomed. Eye contact good. Motor activity appropriate. Speech within normal limits. Affect congruent, mood depressed. Thoughts linear, logical, no signs of hallucinations or delusions. Client Response/Progress/Benefit: [] Pt engaged in session AEB Pt listening attentively to peers and providing input. Attentive during psychoeducation on 4 zones of regulation. Pt able to identify feelings and behaviors for each zone. Pt identified coping skills one can use to support self in each zone. Pt reported feeling in the blue zone today because pt feels ?tired and unmotivated.? Pt stated coping skills pt wants to practice in each zone include: goal setting, positive self-talk, and opposite action. Pt reported he could benefit from eating a healthy lunch and exercising today. Benefited from increased education on zones of regulation or stages of alertness for emotions and healthy coping skills to use for each zone. Will continue IOP tx to reduce isolation, increase motivation, and reduce negative thinking patterns. ? Narrative Note: []
--- NOTE | 2024-06-30 10:10 | BH.SGPN.GN ---
Behaviors/Verbalizations/Mental Status: []Pt alert and oriented, casually dressed and groomed. Eye contact good. Motor activity appropriate. Speech within normal limits. Affect congruent, mood content. anxious. Thoughts linear, logical, no signs of hallucinations or delusions. Client Response/Progress/Benefit: [] Pt took notes and contributed to group discussions. Attentive during psychoeducation on growth mindset. Participated during the activity. Interactive group discussion on growth mindset in which group verbalized their current fixed mindsets and how they affect their mental health. Pt shared common fixed mindset thoughts they have. These thoughts lead to feeling and staying stuck, not making changes or trying things differently, and self-criticism. Pt stated they have personally struggled with fixed thoughts causing them to avoid out of apathy. Pt benefited from increased awareness of growth mindset and fixed thoughts and how fixed thoughts impact their mental health. Will continue IOP tx to prevent decompensation, improve daily functioning, and promote mood stability. Narrative Note: []
--- NOTE | 2024-06-30 11:08 | BH.MDN_ITS ---
Multi-Disciplinary Note Note 30-min Individual: Time Started:: 09:30 Date: 06/30/24 Purpose of session/treatment goals addressed:: Purpose of session was to review tx progress, discuss goal for continued tx, and address tx plan goal #1 obj #1 & 2 Eye Contact:: Good Motor Activity:: Appropriate Appearance:: Disheveled and Casual Speech:: Appropriate Mood:: Dysthymic Affect:: Congruent Thoughts:: Linear, Logical and No evidence of hallucinations/delusions noted Staff Interventions:: motivational interviewing, CBT techniques, strengths perspective, treatment planning (Discussed goals moving forward in IOP tx), reviewed DSM-5, goal setting and taught coping skills (use of opposite action to achieve small goal completion when experiencing urges to give up/quit) Client Response:: Pt responded well to session, actively engaged throughout. Reports that he feels he is making some progress in areas of treatment and struggling in others. Noted progress in the area of being more mindful about his daily activities and thoughts. Shared increased ability to identify the positives in a situation since beginning to challenge his automatic urges to disqualify the positive. Pt shared that he has point his brain does better with finding the evidence against the disqualification rather than simply looking at positives. Went on to note that he has made several efforts to begin working on other treatment goals such as applying to jobs, updating his resume, cleaning his room, and reducing marijuana use. Reports that despite attempting to start working on these goals, he ends up ?finding an excuse to quit? after the first 5 minutes. Receptive of discussion on what results in quitting or giving up. Pt identified feeling overwhelmed by the amount of time and effort working towards his desired goals will take, poor distress tolerance, and n egative perspective. Receptive of discussion reviewing the potential benefits of using opposite action to delay the instant gratification of giving up when things are difficult or uncomfortable. Willing to use opposite action to continue to engage in working on the goal for 5 additional minutes when first experiencing the urge to give up. Pt reports hopefulness this will encourage him to continue to engage in the task even after the 5 minutes has passed. Risks/Concerns:: None noted. Pt SI within baseline score of 2/5, denies plan, or intent. Future oriented Progress Toward Goals/Plan:: Progress noted. Pt has seen a 34% reduction in overall sx since admission per DSM-5 scores. Pt scores additionally indicate a 25% reduction in depression and 33% reduction in irritability. Pt appears more engaged and receptive to treatment skills he is learning. Indicates improved ability to identify daily positives, as well as challenge negative thoughts, and is more motivated to begin following through with goals to go back to work. Shared however struggling with actively working towards this goal. 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 Pt has identified a place he would consider applying but has goals to update his resume prior to doing so. Recommended continued IOP tx to improve mood stability, continue to promote behavior activation skills, and prevent decompensation. Time Stopped:: 10:00
--- NOTE | 2024-06-30 11:10 | BH.SGPN.GN ---
Behaviors/Verbalizations/Mental Status: []Pt alert and oriented, casual dressed and groomed. Eye contact fair. Motor activity appropriate. Speech within normal limits. Affect constricted, mood euthymic. Thoughts linear, logical, no signs of hallucinations or delusions. Client Response/Progress/Benefit: []Pt was an active participant during activity and discussion. Pt did well to remain attentive and participate as group worked on identifying characteristics and benefits of adopting a growth mindset. Worked with fellow participants in reframing the example fixed thoughts into growth mindset thoughts. Pt worked on changing own fixed thought and reframed the thought. Pt also wants to work on dialectical thinking. Pt appeared to benefit from challenging own thoughts and engaging in the activity. Pt will continue IOP tx to reinforce healthy coping skills, challenge negative thoughts, and prevent decompensation.
--- NOTE | 2024-06-30 11:51 | BH.TPR ---
Treatment Plan Review Demographics Date of Admission:: 06/07/24 Date of Treatment Plan Review:: 06/30/24 Admitting Diagnoses:: 1. Major depressive disorder, recurrent, severe without psychosis 2. Autism spectrum disorder 3. Primary support and work issues Current Diagnoses:: 1. Major depressive disorder, recurrent, severe without psychosis 2. Autism spectrum disorder 3. Primary support and work issues Patient Status Patient's Response to Treatment:: According to outcomes measurements pt has shown a 34% reduction in overall symptoms since admission. Pt has had a 25% reduction in the depression domain, 33% reduction in the anger domain, and a 67% reduction in the OCD related sx domain. Also reports slight improvement in motivation and willingness to thought challenge in the past 2 weeks. Pt has responded mostly well to support, structure, and routine of IOP. Has verbalized that despite initially being resistant to the tx environment, the impact that being around others, engaged socially, and maintain a type of routine has helped with his mental health. IOP has also helped to decrease isolation and given purpose/meaning to the day. Despite progress pt has struggled to implement some of the more behavior activation skills learned in IOP which may prevent additional progress. Pt is however receptive of feedback from peer and staff and engages in both individual and group sessions. Pt remains consistent with attendance as well. Status of Current Problems and Symptoms: Outcomes overall note progress in irritability and depression. According to pt he also reports decreased isolation, improved sense of direction in life, and reduced survival ambivalence. However, pt believes that his ability to experience happiness/iesha have been blunted due in large part to chronic daily marijuana use and pt has struggled with reducing his use. Progress Problem #1: Problem Name:: Depression Status of Goals:: Outcomes show a 25% reduction in the depression domain. During last session pt reported decreased isolation and improved motivation and willingness to challenge negative thinking patterns. obj1-Compelte with ongoing work recommended; has completed groups witch have provided psychoeducation on coping strategies to use to better manage sx of depression. Pt reports trying to improve application of skills and working towards goals, but reports ongoing difficulties with motivation and follow-through. obj2- Complete with ongoing work recommended; IOP has been helpful in providing psychoeducation on common distortions and ways to challenge these as well as intentionally identify and challenge his perspective and unhealthy thought patterns. Pt reports he is naturally resistant to identifying positive or practicing gratitude but has been able to make strides in his overall ability and willingness to do so. Team Recommendations:: Continue with current goals with an emphasis on behavior activation strategies.
--- NOTE | 2024-06-30 11:54 | PCM.BH.PN_ITS ---
Progress Note Progress Note: History of Present Illness/Interim History: The patient is a 23-year-old single male with a history of depression, anxiety and probable autism spectrum disorder who is seen in follow-up at the [facility] behavioral health IOP. I last saw the patient 3 weeks ago and at that time he restarted his Prozac at 10 mg daily that he had taken in the past with benefit. The patient states that he feels a little better with his mood improving a little bit. He is enjoying the IOP and feels he is benefiting from the program. He still has symptoms of depression including hopelessness which has lessened somewhat but is still present at times. He is still having passive thoughts of but he states that he is having them less often than he did at the start of the IOP. He denies suicidal ideation, plan for suicide, homicidal ideation, hallucinations or delusions. He is tolerating the Prozac well with no side effects. Current Psychiatric Medications: [] Prozac 10 mg p.o. daily (x 3 weeks) Mental Status Examination: [] The patient is a 23-year-old male who appears normal for stated age and has a carlson. He is casually dressed and groomed with good hygiene and is ambulatory with a normal gait. He has no psychomotor agitation or retardation. Eye contact is good and speech is normal rate and rhythm and fluent with no pressure. Mood is depressed. Affect is mildly constricted. Thought process is goal-directed and organized. Thought content: There is evidence of passive thoughts of but there is no evidence of plan for suicide, suicidal ideation, homicidal ideation, hallucinations or delusions. Reality testing is intact. Intelligence is average. Judgment is intact. Insight fair. Impulsivity moderate. Laboratory: Patient obtained his labs and his TSH is normal but his vitamin D is quite low so it will be prescribed. Diagnoses: [] 1. Major depressive disorder, recurrent, severe without psychosis 2. Autism spectrum disorder 3. Primary support and work issues Plan: [] The patient will continue the IOP and behavioral health at [facility] as the structure, support, education and group therapy will hopefully prevent worsening of the patient's symptoms. He felt safe during the interview and if it anytime he does not feel safe he has agreed to let us know or go to the emergency room. The risk, options, possible complications and side effects of the Prozac were again discussed with the patient and he understands and accepts these. He agrees to increase his Prozac to 20 mg p.o. daily and to start vitamin D2 50,000 units/week for 3 months and prescription is sent in for this. He will continue to follow-up with his outpatient providers and I will see the patient in follow-up in several weeks.
--- NOTE | 2024-07-02 09:00 | BH.SGPN.GN ---
Behaviors/Verbalizations/Mental Status: [] Eye contact is good. Motor activity is appropriate. Appearance is casual. Speech is Appropriate. Mood is anxious and euthymic. Affect is congruent. Thoughts are linear and logical. No evidence of psychosis. Reviewed daily check in sheet and reports 1/5 for suicidal ideations and intent which is consistent with pt's baseline. Client Response/Progress/Benefit: [] Pt was an active participant in group discussion. Attentive. Daily symptom tracker notes 3/5 for depression, 3/5 for anxiety, and 3/5 for agitation which indicates progress for pt. Shared with the group mental health wins including getting out of the house and attending an event at a game shop he has never been to before. Described this as outside of his comfort zone but that he was glad he went as he was able to make some connections and enjoy himself, plans to go back. Additional win noted as making it to group today despite not getting much sleep. Shared that difficulties in getting quality sleep continues to be a stressor even after cutting back on naps. Receptive of supportive feedback from group. Progress noted. Benefited from group support, encouragement, and feedback. Will continue in IOP to prevent decompensation, increase healthy coping, and improve self-talk. Narrative Note: []
--- NOTE | 2024-07-02 10:10 | BH.SGPN.GN ---
Behaviors/Verbalizations/Mental Status: []Pt alert and oriented, casually dressed and groomed. Eye contact good. Motor activity appropriate. Speech within normal limits. Affect congruent, mood anxious and depressed. Thoughts linear, logical, no signs of hallucinations or delusions. Client Response/Progress/Benefit: []Pt participated during small group discussions. Attentive during psychoeducation about defense mechanisms. Showed engagement during small group discussions and helped group identify which defense mechanisms were maladaptive, adaptive, or ?somewhere in the giron.? Pt worked with small group on identifying how each defense mechanism can impact mental health and gave examples. ?Seemed to benefit from gaining awareness about the different defense mechanisms. Pt to continue IOP tx to prevent decompensation, increase motivation, and reduce negative self-talk. Narrative Note: []
--- NOTE | 2024-07-02 11:10 | BH.SGPN.GN ---
Behaviors/Verbalizations/Mental Status: []Pt alert and oriented, casually dressed and groomed. Eye contact fair. Motor activity appropriate. Speech within normal limits. Affect constricted, mood euthymic. Thoughts linear, logical, no signs of hallucinations or delusions. Client Response/Progress/Benefit: []Pt responded well to session, participating in activity and small group discussion. Group reviewed the rest of the defense mechanisms and discussed how these are adaptive, maladaptive, or somewhere in the giron. Pt's defense mechanisms included denial, suppression, and rationalization. Pt listened to tufter hand teach different skills to help pt?s cope with or change their defense mechanisms. Pt appeared to benefit from gaining insight to the different defense mechanisms and learning coping skills. Pt will continue IOP tx to improve consistent use of healthy coping skills, challenge distorted thoughts, and prevent decompensation.
--- NOTE | 2024-07-05 10:10 | BH.SGPN.GN ---
Behaviors/Verbalizations/Mental Status: []Eye contact is fair. Motor activity is appropriate. Appearance is casual. Speech is Appropriate. Mood is content. Affect is congruent. Thoughts are linear and logical. No evidence of psychosis. Client Response/Progress/Benefit: [] Pt was an active participant in group discussions. Attentive during psychoeducation. Contributed during interactive discussions in which peers attempted to define crisis. Group identified crisis examples. Group also worked together to identify warning signs and unhealthy responses to crisis which included shutting down, isolation, avoidance, over-thinking, disordered eating, and self-harm. Pt identified top 3 warning signs as: staying up late/not sleeping, stopping showering, and canceling plans. Benefited from increased understanding of crisis and awareness of personal responses to crisis. Pt will continue IOP tx to prevent decompensation, reduce negative thinking patterns, and improve self-confidence. Narrative Note: []
--- NOTE | 2024-07-05 11:10 | BH.SGPN.GN ---
Behaviors/Verbalizations/Mental Status: []Pt alert and oriented, appropriate grooming/appearance. Eye contact fair. Motor activity appropriate. Speech within normal limits. Affect congruent, mood euthymic. Thoughts linear, logical, no signs of hallucinations or delusions. Client Response/Progress/Benefit: []Pt was an active participant in group discussions. Attentive during psychoeducation. In small group pt along with peers developed an active plan for their crisis warning signs. Pt identified three crisis warning signs as well as an action plan for each. One crisis warning sign was not having nighttime routine. Pt identified strategies to help with this such as: changing environment, setting alarms to wake up, going to bed at consistent time, and engaging senses to help calm down. Benefited from increased awareness of crisis warning signs and by developing crisis intervention strategies. Will continue in IOP to challenge distorted thoughts, reinforce healthy coping skills, and prevent decompensation.
--- NOTE | 2024-07-05 11:39 | BH.MDN_ITS ---
Multi-Disciplinary Note Note 30-min Individual: Time Started:: 09:28 Date: 07/05/24 Purpose of session/treatment goals addressed:: Purpose of session was to address tx plan goal #1 obj #1 & 2 Eye Contact:: Good Motor Activity:: Appropriate Appearance:: Casual Speech:: Appropriate Mood:: Euthymic Affect:: Congruent Thoughts:: Linear, Logical and No evidence of hallucinations/delusions noted Staff Interventions:: thought challenging, motivational interviewing, CBT techniques, strengths perspective and goal setting Client Response:: Pt receptive of session, affect brighter and pt more engaged than in prior sessions. Initially reported having a ?bennett rough? weekend due to the weather. Reported that his motivation had been lower and he felt he did not accomplish much; however, after further discussion, pt was able to identify several positives and areas he deserves credit. Shared going for walks Friday, , and Friday and challenged initial urges to disqualify this due to not walking Friday and Friday. Recognized that his expectations for himself may not be realistic based on current levels of functioning, as pt reports beliefs he should be as productive as anyone with a 9-5 job. Did well to reflect further on areas of progress over the weekend. Shared spending more time engaged in his hobbies, including 3-d printing and doing research on a game he enjoys playing in person. Described wanting to make strides in finding employment, but convinces himself he is not qualified or burnout on the position resulting in not completing his resume or applying for any positions. Additionally, recognizes he often finds reasons a job won?t work out to prevent from having to follow-through with applying. Recognizes that continuing to work on thought challenging and building consistency in other areas of his life will aid in improving confidence and motivation to work on employment goals. Additionally, pt did well to begin working on challenging expectations of employment and work on starting to get used to working again rather than stressing himself out about finding the perfect job. Goals to walk 4x in the next week as well as work on his resume for at least 5 minutes 4x this week. Risks/Concerns:: None noted. Pt denies active SI, plan, or intent as of this date 07/05/24 Progress Toward Goals/Plan:: Progress noted. Pt reports continued reduction in daytime napping, increased willingness to identify small daily positives and challenge urges to disqualify these, as well as increased engagement in activities he enjoys. Reports spending more time engaged in 3-D printing and was able to be present and enjoy this rather than feeling disconnected or having thoughts of What' the point, I'm just distracting myself. Notes a greater sense of purpose and desire to find employment; however, continues to struggle with actively engaging in behaviors and goal setting to work towards this. Does have insight that his avoidance is ma intaining anxiety. Improved follow-through with regular exercise and has goals to continue with daily walking and completion of basic hygiene routine. Pt recommended continued IOP tx to further improve mood stability and skill application, reduce avoidance, and prevent decompensation. Time Stopped:: 10:02
--- NOTE | 2024-07-07 09:05 | BH.SGPN.GN ---
Behaviors/Verbalizations/Mental Status: [] Eye contact is good. Motor activity is appropriate. Appearance is casual. Speech is Appropriate. Mood is content. Affect is congruent. Thoughts are linear and logical. No evidence of psychosis. Reviewed daily check in sheet and no reports of suicidal ideations or intent. Client Response/Progress/Benefit: [] Pt was an active participant in group discussions. Attentive. Did well to identify 2 mental health wins including being able to get to group on time today as he woke up early and accomplished a few tasks. Identified use of opposite action. Additional win noted as taking time to warm his car prior to leaving which he does not usually get the opportunity to do when rushed. Current stressor noted as struggling with sleep. Benefited from group support, encouragement, and feedback. Will continue in IOP to prevent decompensation, promote mood stability, and increase consistent use of healthy coping. Narrative Note: []
--- NOTE | 2024-07-07 10:10 | BH.SGPN.GN ---
Behaviors/Verbalizations/Mental Status: [] Pt alert and oriented, casually dressed and groomed. Eye contact good. Motor activity appropriate. Speech within normal limits. Affect congruent, mood depressed. Thoughts linear, logical, no signs of hallucinations or delusions. Client Response/Progress/Benefit: []Pt an active participant in group discussions on defining conflict (internal/external) and possible benefits to conflict. Attentive during psychoeducation on conflict styles (avoidant, accommodating, competing, cooperative) and engaged during group discussion in which peers identified the benefits and consequences to each conflict style. Pt identified that he tends to be avoidant or competing depending on the subject and his mood. Benefited from increased awareness of the impact of conflict styles in mental health. Will continue in IOP tx to prevent decompensation, stabilize mood, and improve functioning. Narrative Note: []
--- NOTE | 2024-07-07 11:10 | BH.SGPN.GN ---
Behaviors/Verbalizations/Mental Status: []Client alert and oriented, casually dressed and groomed. Eye contact good. Motor activity appropriate. Speech within normal limits. Affect congruent, mood euthymic. Thoughts linear, logical, no signs of hallucinations or delusions. Client Response/Progress/Benefit: [] Pt engaged in session AEB contributing to discussion and engaging in small group. Attentive during discussion on strategies for more effectively managing conflict in personal life. Pt participated in small group for activity and did well practicing how to manage conflict scenarios. Pt given handout on fair fighting rules and how to identify common conflict barriers. Pt indicated what needs improvement in conflict for them which was to ?take a time out when things get heated? when addressing conflict. Appeared to benefit from gaining strategies to help Pt better manage conflict. Will continue IOP tx promote use of healthy coping skills, increase distress tolerance skills, and improve daily functioning. ? Narrative Note: []
--- NOTE | 2024-07-09 09:05 | BH.SGPN.GN ---
Behaviors/Verbalizations/Mental Status: [] Eye contact is good. Motor activity is appropriate. Appearance is casual. Speech is Appropriate. Mood is anxious/depressed. Affect is congruent. Thoughts are linear and logical. No evidence of psychosis. Reviewed daily check in sheet and pt reports 1/5 for suicidal thoughts and 0/5 for intent. Client Response/Progress/Benefit: [] Pt participated at times during the group discussions. Attentive. Daily symptom tracker notes 4/5 for depression, 3/5 for anxiety, and 2/5 for self-harm urges. Very brief check-in. States feeling irritable which he attributes to poor sleep. Difficulty for him to maintain healthy sleep schedule which significant impacts his mood and functioning. Limited progress noted. Disengaged. Limited benefited from group. Will continue in IOP to prevent decompensation, increase healthy coping, and improve functioning Narrative Note: []
--- NOTE | 2024-07-09 10:15 | BH.SGPN.GN ---
Behaviors/Verbalizations/Mental Status: []Pt alert and oriented, casually dressed and groomed. Eye contact good. Motor activity appropriate. Speech within normal limits. Affect congruent, mood engaged. Thoughts linear, logical, no signs of hallucinations or delusions. Client Response/Progress/Benefit: [] Pt receptive to session AEB contributing to group discussion, as well as listening attentively to others, and taking notes. Worked with group to brainstorm the positive and negative aspects of stress on physical and mental health as well as the impact of distress on performance, relationships, and mental health. Pt shared their top stressors to be: isolation, wanting to nap all the time, finding a career, and money. Shared when feeling overwhelmed with stress pt tends to avoid and shut down. Benefited from increased awareness of positive and negative stress as well as how stress impact individuals. Will continue in IOP to prevent decompensation, increase distress tolerance, and improve daily functioning. Narrative Note: []
--- NOTE | 2024-07-09 11:15 | BH.SGPN.GN ---
Behaviors/Verbalizations/Mental Status: [] Pt alert and oriented, casually dressed and groomed. Eye contact good. Motor activity appropriate. Speech within normal limits. Affect congruent, mood dysthymic. Thoughts linear, logical, no signs of hallucinations or delusions. Client Response/Progress/Benefit: [] Pt was an attentive participant in group discussions and actively engaged during experiential activity, doing well to regulate their emotions throughout the activity and work with peers. Attentive during psychoeducation on the 4 A's (Avoid, adapt, alter, accept) of coping with stress. Shared that they would benefit most from adapting his expectations of what he is able to do right now regarding employment. Was able to identify the connection between the experiential activity and utilization of stress management skills. Benefited from increased awareness of stress management strategies. Pt will continue IOP to prevent decompensation, increase healthy coping, and improve functioning. Narrative Note: []
--- NOTE | 2024-07-12 09:05 | BH.SGPN.GN ---
Behaviors/Verbalizations/Mental Status: [] Eye contact is good. Motor activity is appropriate. Appearance is casual. Speech is Appropriate. Mood is dysthymic. Affect is congruent. Thoughts are linear and logical. No evidence of psychosis. Reviewed daily check in sheet and pt reports 15 for passive thoughts of which had been baseline since admission. 0/5 for intent. Client Response/Progress/Benefit: [] Pt participated at times during the group discussions. Attentive. Pt is utilizing behavioral activation and habit changing skills to improve overall mental health and functioning. Increased exercise and socialization yesterday despite ? not wanting to do it?. Overcame initial urges and followed through which significantly helped his mental health. Beginning to see benefits from small daily changes. He continues to struggle significantly with his sleep. Often stays up till 4am. Vague regarding possible reasons for his struggles aside from taking naps during the day. Continues to work on his sleep schedule. Progress noted. Benefited from group support, encouragement, and feedback. Will continue in IOP to prevent decompensation, increase healthy coping, and improve functioning. Narrative Note: []
--- NOTE | 2024-07-12 10:10 | BH.SGPN.GN ---
Behaviors/Verbalizations/Mental Status: []Patient was alert and oriented, casually dressed and groomed. Eye contact good. motor activity appropriate. speech within normal limits. Affect congruent, mood dysthymic. Thoughts linear, logical, no signs of hallucinations or delusion. Client Response/Progress/Benefit: [] Pt participated in the group discussions AEB providing input, nodding and taking notes. Attentive during psychoeducation Goal Setting. Participated during the discussion on common barriers. Pt stated personal barriers to accomplishing goals include lack of motivation and needing to prepare. Group also identified benefits of goals as sense of purpose, improved self-confidence, more motivation for other goals, sense of accomplishment, and improved mental health. Pt identified personal benefits to goal setting. Benefited from increased awareness of mental health benefits of goals as well as psychoeducation on SMART goal criteria. Will continue in IOP to further reduce isolation, increase self-compassion, and improve daily functioning. ?? Narrative Note: []
--- NOTE | 2024-07-12 11:10 | BH.SGPN.GN ---
Behaviors/Verbalizations/Mental Status: [] Pt alert and oriented. Appearance is casual. Eye contact is fair. Motor activity appropriate. Speech within normal limits. Affect is anxious and irritable. Mood is congruent. Thoughts linear, logical, no signs of hallucinations or delusions. Client Response/Progress/Benefit: [] Pt was engaged during discussion and experiential activity. Completed the worksheet challenging them to develop a personal SMART goal. Pt chose a SMART goal to apply to at least one job by next Friday. Believes this goal will benefit them being through increased financial support. Identified obstacles such as outdated resume and lack of motivation. Benefited from this group by developing a short-term SMART goal related to mental health. Will continue IOP to prevent decompensation, increase healthy coping, and improve functioning. Narrative Note: []
--- NOTE | 2024-07-13 14:36 | BH.MDN ---
Multi-Disciplinary Note Note 30-min Individual: Time Started:: :25 Date: 07/14/24 Purpose of session/treatment goals addressed:: To address tx plan goal #1 objs #1 & #2 Eye Contact:: Good Motor Activity:: Restless Appearance:: Casual Speech:: Appropriate Mood:: Euthymic Affect:: Congruent Thoughts:: Linear, Logical and No evidence of hallucinations/delusions noted Staff Interventions:: thought challenging, CBT techniques, discharge planning and strengths perspective Client Response:: Pt receptive of session, engaged throughout. Reports that he is noticing improvement in his mood and motivation over the past two weeks which has been a pleasant surprise. Described initial skepticism regarding his ability to make progress with managing his mental health. Went on to state progress in more consistently going to bed by 10pm, exercising daily via walks, and improved ability to challenge his negative thoughts. Discussed that his baseline has been less negative and more neutral, noting it is easier for him to be kind to himself on a consistent baseline. Pt reports his mood has also been more stable and he is less irritable as well. Shared that he has started using an alphonse to help remind him of the daily routine tasks he would like to continue to implement in order to maintain gains. Identified a daily morning routine, regular walking, tidying up his room area, as well as identifying small positives. Noted readiness to d/c from IOP tx next week but would like to focus on creating an aftercare maintenance plan and contiue with consistent skill application prior to doing so. Risks/Concerns:: Daily symptom tracker notes no suicidal ideations, plan, or intent. Progress Toward Goals/Plan:: Progress noted. Pt reports improved mood stability and self-care, decreased self-doubt, and less irritability. Pt noted that he has found IOP tx helpful in returning to his daily responsibilities and more actively engaging in hobbies and interests. Shared reduced isolation and is more consistently attending game nights, reaching out to friends, and communicating with his mother. Discussed plans to return to employment as well. Recommended continued IOP tx to prevent decompensation, complete d/c planning, and maintain mood stability. Time Stopped:: 09:47
--- NOTE | 2024-07-14 10:15 | BH.SGPN.GN ---
Behaviors/Verbalizations/Mental Status: []Client alert and oriented, casually dressed and groomed. Eye contact good. Motor activity appropriate. Speech within normal limits. Affect congruent, mood euthymic. Thoughts linear, logical, no signs of hallucinations or delusions Client Response/Progress/Benefit: []pt responded well to session, contributing to discussion and engaged during the activity. Group identified the benefits of change which included: personal growth, increased confidence, improving mental health, progressing, and becoming resilient. Worked with the group to identify barriers to change and pt identified personal barriers as addiction to unhealthy food, not having variety, and lack of money. pt participated along with group in activity where they discussed the emotions related to change. Benefited from increased awareness and understanding of emotions, benefits, and barriers related to change. Will continue IOP tx to prevent decompensation, gain healthy coping skills, and improve daily functioning. Narrative Note: []
--- NOTE | 2024-07-14 11:15 | BH.SGPN.GN ---
Behaviors/Verbalizations/Mental Status: []Client alert and oriented, neatly dressed and groomed. Eye contact good. Motor activity appropriate. Speech within normal limits. Affect congruent, mood depressed and anxious. Thoughts linear, logical, no signs of hallucinations or delusions. Client Response/Progress/Benefit: [] Pt responded well to session, attentive throughout. Did well to actively listen and contributed when prompted as group worked to review change process. Pt worked with group to relate the strategies used to overcome barriers in the various stages of change and common emotions throughout. Pt identified a change they would like to make is ?Going on daily walks.? Pt identified currently being in the action stage for this change. Pt said setting regular alarms is one thing he can do to help pt get to the next stage. Appeared to benefit from identifying a change they want and how to progress. Pt will continue IOP tx to prevent decompensation, combat distorted thought patterns, and improve self-compassion. Narrative Note: []
--- NOTE | 2024-07-16 09:05 | BH.SGPN.GN ---
Behaviors/Verbalizations/Mental Status: [] Eye contact is good. Motor activity is appropriate. Appearance is casual. Speech is Appropriate. Mood is dysthymic. Affect is congruent. Thoughts are linear and logical. No evidence of psychosis. Reviewed daily check in sheet and pt reports 1/5 for SI which has been consistent since his admission. Baseline and no imminent risk. Client Response/Progress/Benefit: [] Pt participated when prompted. Daily symptoms tracker notes 3/5 for depression and 2/5 for anxiety.. Check-in was brief and superficial which is baseline. Pt reports following through with ADLS and responsibilities. Sleep continues to be a consistent struggle however reports ?some improvement?. Insight and awareness on unhealthy habits that cause sleep struggles. Progress noted. Benefited from group support, encouragement, and feedback. Will continue in IOP to prevent decompensation, stabilize mood, increase healthy coping, and improve functioning. Narrative Note: []
--- NOTE | 2024-07-16 10:10 | BH.SGPN.GN ---
Behaviors/Verbalizations/Mental Status: [] Client alert and oriented, casually dressed and groomed. Eye contact good. Motor activity appropriate. Speech within normal limits. Affect congruent, mood content. Thoughts linear, logical, no signs of hallucinations or delusions. Client Response/Progress/Benefit: [] Pt responded well to session AEB sharing and listening attentively to others. Group provided examples of benefits of having social support, including: validation, get assistance, and accountability. Pt also participated in group discussion regarding the barriers to accessing support identifying examples to include: negative thinking, lack of communication, and lack of trust. Personal example identified as not communicating and isolating. Pt participated in experiential activity illustrating the impact communication, boundaries, and patience play in creating healthy support systems. Pt appeared to benefit from increased knowledge of the benefits of social support and greater self-awareness. Pt to continue IOP to improve mood stability, increase consistent use of healthy coping skills, and prevent decompensation. Narrative Note: []
--- NOTE | 2024-07-16 11:10 | BH.SGPN.GN ---
Behaviors/Verbalizations/Mental Status: []Client alert and oriented, casually dressed and groomed. Eye contact good. Motor activity appropriate. Speech within normal limits. Affect congruent, mood content. Thoughts linear, logical, no signs of hallucinations or delusions. Client Response/Progress/Benefit: [] Pt participated throughout AEB contributing to discussion, providing examples, and taking notes. Pt provided input during discussion on the types of support our supports can provide. Pt able to identify current support system and barriers that get in the way of using supports. Pt reported after identifying what type of supports pt receives, pt gained awareness that pt could benefit from more emotional support by communicating goals and supports to help with accountability. Pt seemed to benefit from identifying the type of support pt needs to work on improving. Pt recommended to continue IOP tx to promote mood stability, reduce negative thinking patterns, and improve daily functioning. Narrative Note: []
== END 2024-07-16 23:59 ==
LOC: BHIOP 07:17
PROVIDERS: Referring Provider Psychiatry & Neurology Psychiatry; Visit Provider Psychiatry & Neurology Psychiatry
DX: F33.2 Major depressive disorder, recurrent severe without psychotic features (principal); F84.0 Autistic disorder
CPT/HCPCS: S9480; 90832; 90853

== ENCOUNTER 2024-07-19 07:35 | Outpatient (RCR) | payer OTHER, SELFPAY ==
[2024-07-17 02:37] VITALS: BP 143/73; PULSE 77
--- NOTE | 2024-07-19 10:10 | BH.SGPN.GN ---
Behaviors/Verbalizations/Mental Status: [] Eye contact is fair. Motor activity is appropriate. Appearance is casual. Speech is Appropriate. Mood is anxious. Affect is constricted. Thoughts are linear and logical. No evidence of psychosis. Client Response/Progress/Benefit: [] Pt was an active participant in group discussions. Attentive during psychoeducation on the 4 communication styles (Passive, Passive-Aggressive, Aggressive, and Assertive) and the obstacles to effective communication. Contributed during interactive discussion on the benefits of communicating effectively. Worked well with peers to identify the benefits and disadvantages to the different communication styles. Pt believes that he is primarily passive and aggressive and gave examples of recent events. Benefited from increased understanding of communication styles and how these can impact effective communication. Will continue in IOP to prevent decompensation, increase healthy coping skills, and improve functioning.
--- NOTE | 2024-07-19 11:15 | BH.SGPN.GN ---
Behaviors/Verbalizations/Mental Status: []Pt alert and oriented, casually dressed and groomed. Eye contact good. Motor activity appropriate. Speech within normal limits. Affect congruent, mood euthymic. Thoughts linear, logical, no signs of hallucinations or delusions. Client Response/Progress/Benefit: [] Pt responded well to session AEB Pt listening attentively to others and providing input during group discussion on the pay offs and costs of the different communication styles. Pt able to connect how current communication style impacts mental health. Connected with peers? comments about importance of using assertive communication. Pt seemed to benefit from increasing awareness of healthy strategies to improve communication and worked within small group to identify assertive communication approaches to example scenarios. Identified wanting to work on being more mindful of how he is coming across when communicating with others. Will continue IOP tx to prevent decompensation, maintain mood stability, and improve daily functioning. ? Narrative Note: []
--- NOTE | 2024-07-21 09:02 | BH.SGPN.GN ---
Behaviors/Verbalizations/Mental Status: [] Client alert and oriented, casual appearance. Eye contact fair. Motor activity appropriate. Speech within normal limits. Affect congruent, mood dysthymic. Thoughts linear, logical, no signs of hallucinations or delusions. Reviewed client's symptom tracker, no risk for suicidal ideation, plan, or intent. Client Response/Progress/Benefit: [] Client responded well to session AEB listening to others and sharing thoughts/feelings. Client reported mental positive as showing up to IOP today even though he was running late. 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 Appeared to benefit from support from peers. Will continue IOP tx to increase healthy coping, challenge distortions, and prevent decompensation. Narrative Note: []
--- NOTE | 2024-07-21 10:10 | BH.SGPN.GN ---
Behaviors/Verbalizations/Mental Status: [] Pt alert and oriented, casually dressed and groomed. Eye contact good. Motor activity appropriate. Speech within normal limits. Affect full, mood dysthymic. Thoughts linear, logical, no signs of hallucinations or delusions. Client Response/Progress/Benefit: [] Pt was an engaged participant AEB listening attentively to others, taking notes, and providing feedback in group discussions. Attentive during psychoeducation AEB by note taking. Pt worked along with peers in groups to define inappropriate guilt and appropriate guilt. Group worked together to provide examples of both inappropriate and appropriate guilt. Group identified a canceling plans and snapping at kids as appropriate guilt examples. Group identified setting a being in a down mood and taking responsibility for other?s emotions as having inappropriate guilt. Pt able to connect impact inappropriate guilt can have on MH and overall functioning. Identified struggling at times with self-forgiveness and feeling bad for not being more motivated resulting in inappropriate guilt. Benefited from increased awareness of guilt and the differences between appropriate and inappropriate guilt. Pt to continue IOP tx to prevent decompensation, gain healthy coping skills, and increase application of behavioral activation skills. Narrative Note: []
--- NOTE | 2024-07-21 11:10 | BH.SGPN.GN ---
Behaviors/Verbalizations/Mental Status: []Pt alert and oriented, casually dressed and groomed. Eye contact good. Motor activity appropriate. Speech within normal limits. Affect congruent, mood euthymic. Thoughts linear, logical, no signs of hallucinations or delusions. Client Response/Progress/Benefit: [] Pt was an engaged participant AEB listening attentively to others and providing input throughout group. Pt worked within their small group to identify strategies to manage inappropriate guilt. Identified a personal example of inappropriate guilt as ?feeling guilt for not having a job and needing IOP therapy.? Pt wants to work on combatting inappropriate guilt by ?giving myself credit for things I have done.? Pt seemed to benefit from learning about strategies to manage appropriate and inappropriate guilt. Pt to continue IOP tx to promote mood stability, reduce negative thinking patterns, and reinforce healthy coping skills. ? Narrative Note: []
--- NOTE | 2024-07-23 10:10 | BH.SGPN.GN ---
Behaviors/Verbalizations/Mental Status: [] Eye contact is good. Motor activity is appropriate. Appearance is casual. Speech is Appropriate. Mood is content. Affect is congruent. Thoughts are linear and logical. No evidence of psychosis. Client Response/Progress/Benefit: [] Pt receptive of session, actively engaged throughout AEB taking notes, providing input, and contributing in group discussion. Appeared to connect with group topic of automatic thoughts and cognitive distortions, as well as the impact of thought patterns on mental health, coping behaviors, and relationships. This particular group is very heavy on psychoeducation and pt appeared to connect with distortions and how they can impact functioning. Identified struggling with the disqualifying the positives distortion indicating they are a very negative person. Pt appeared to benefit from gaining insight on distorted thinking patterns and how this impacts overall mental health. Will continue IOP to increase self worth, improve ability to function, and prevent decompensation. Narrative Note: []
--- NOTE | 2024-07-23 11:12 | BH.SGPN.GN ---
Behaviors/Verbalizations/Mental Status: [] Eye contact is good. Motor activity is appropriate. Appearance is casual. Speech is Appropriate. Mood is content. Affect is congruent. Thoughts are linear and logical. No evidence of psychosis. Client Response/Progress/Benefit: [] Pt was an active participant during group discussion. Pt was placed in a smaller group for activity and participated in identifying/combatting example distortions with peers. Pt was engaged in the smaller group, participated in group interactions to brainstorm answers, and appeared to be comprehending cognitive distortions. Pt stated could connect with many of the distortions covered in group. Benefited from gaining further insight and awareness of cognitive distortions as well as practicing ways to reframe and challenge thoughts. Client discharging program today successfully. Narrative Note: []
--- NOTE | 2024-07-23 14:41 | BH.MDN_ITS ---
Multi-Disciplinary Note Note 30-min Individual: Time Started:: 09:35 Date: 07/23/24 Purpose of session/treatment goals addressed:: To review treatment progress and discuss strategies for continued maintenance. Another goal was to discuss discharge and aftercare. Eye Contact:: Good Motor Activity:: Appropriate Appearance:: Casual Speech:: Appropriate Mood:: Euthymic Affect:: Congruent Thoughts:: Linear, Logical and No evidence of hallucinations/delusions noted Staff Interventions:: CBT techniques, discharge planning, strengths perspective and reviewed DSM-5 Client Response:: Pt responded well to session, open to meeting with therapist. Pt reports he is doing well today and he shared that she had stressors this week, but pt felt that he managed these stressors well. Pt described not isolating, shutting down, or becoming irritable in response to various stressors. Noted that he has found his overall mood and motivation levels remain elevated, attributing this to perspective challenging, daily gratitude, opposite action, and continuing to utilize a time management reminder alphonse. Pt expressed finding more enjoyment in his hobbies and interests as well, citing increased engagement in weekly social card games. Pt noted some anxiety a bout the prospect of returning to work, however also indicated feeling excited about having a potential opportunity. 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 Pt responded well to reviewing skills and thought challenge techniques he can use to aid with ongoing maintenance as well as anxiety management when transitioning back into the workforce. Risks/Concerns:: Pt denies any suicidal ideations, plan, or intent. Pt denies any thoughts of . Progress Toward Goals/Plan:: Pt continues to make progress towards tx goals AEB self-report of improved mood and functioning, as well as reduction in DSM-5 scores since admission. Pt also reports improvement in motivation, perspective challenging, self-compassion, and regulation of anxiety and depressive symptoms. Pt is more engaged with supports and within the [place] community, reports reduced isolation, improved sleep, and better sense of self- confidence. Pt got connected with [facility] for outpatient counseling services and will d/c from [facility] tx on this date. Time Stopped:: 09:55
--- NOTE | 2024-07-23 14:57 | BH.DS ---
Discharge Summary Demographics Date of Admission:: 08/17/24 Discharge Date: 07/23/24 Presenting Problems at Admission:: The patient is a 23-year-old single male with a history of depression, anxiety and probable autism spectrum disorder who was referred to the [facility] behavioral health IOP by his mother for worsening symptoms of depression and anxiety over the past few months. Symptoms have worsened in the past year since moving back in with his mother and step-father after living and working in [place] for 1 year. Patient moved back home due to worsening mental health symptoms. Due to current mental health symptoms he has not been able to work and has limited social support. He has some sadness and crying at times and also has anger daily which has been consistent for many years and some irritability with lashing out at others less than once a week. This is only verbal and he denies any violence. He endorses hopelessness, worthlessness, isolation, lack of motivation, anhedonia, naps during the day and then has a hard time sleeping at night, low energy, guilt, passive thoughts of . He denies plan for suicide, suicidal ideation, homicidal ideation, hallucinations, delusions or symptoms of yonas or hypomania ever. Repports using marijuana daily to cope with his sx. He says he is not a worrier by nature and denies panic attacks, OCD, eating disorder, trauma and PTSD. He denies any verbal, physical or sexual abuse ever and denies seizure or head trauma. He uses rare caffeine only and no energy drinks. He has a history of self-harm by burning himself but it was only 1 time at age 18 and never before or after. Discharge Diagnoses:: 1. Major depressive disorder, recurrent, severe without psychosis 2. Autism spectrum disorder Reason for Discharge:: Pt has accomplished tx goals AEB reduction of DMS-5 symptoms, self-report of improved functioning and mood, and improved outlook. Pt no longer meets criteria for IOP level of care and will discharge to outpatient counseling. Treatment Progress During Treatment & Response: Pt has responded well to treatment as evidenced by Pt consistently attending IOP sessions and reduction of DSM-5 scores since admission. Pt was always attentive and receptive to learning during group and individual sessions. Pt actively applied coping skills outside of IOP and reports overall mood is improved and he is functioning better than several months ago. Pt?s overall symptom reduction is 30% since admission with anger decreasing by 67%, depression decreasing by 50%, and OCD sx decreasing by 33%. Pt has increased self-compassion and motivation. Most importantly, Pt has become more self-aware, flexible, and confident in his abilities. Pt will follow up with [facility] for medication management and [facility] for individual therapy. Issues Still to be Addressed:: Pt can benefit from continuing to improve self-talk, self-compassion, boundary setting, and expressing his needs. Discharge Recommendations/Instructions:: Pt will follow up with [facility] for medication management and [facility] for individual therapy. Pt is unsure of when his scheduled appointment dates are. Discharge Handout
== END 2024-07-23 12:21 | disposition home or self-care (01) ==
LOC: BHIOP 07:35
PROVIDERS: Referring Provider Psychiatry & Neurology Psychiatry; Visit Provider Psychiatry & Neurology Psychiatry
DX: F33.2 Major depressive disorder, recurrent severe without psychotic features (principal); F84.0 Autistic disorder; Z79.899 Other long term (current) drug therapy
CPT/HCPCS: S9480; 90832; 90853